=== PATIENT | male | born 1995 | race African-American/Black ===

== ENCOUNTER 2019-04-09 16:32 | Emergency (ER) | payer OTHER ==
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
[2019-04-09 16:50] VITALS: BP 145/77; PULSE 111; TEMP 97.2; BMI 29.5
[2019-04-09] MEDS ORDERED: IBUPROFEN 600 MG TABLET (FP) PO ONE ×2 (17:26→17:32)
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
== END 2019-04-09 17:40 | disposition home or self-care (01) ==
LOC: JERFT 16:32
DX: Z04.1 Encounter for examination and observation following transport accident (principal); V43.52XA Car driver injured in collision with other type car in traffic accident, initial encounter; Y93.89 Activity, other specified; Y92.410 Unspecified street and highway as the place of occurrence of the external cause
CPT/HCPCS: 99281-25